=== PATIENT | female | born 1940 | race Caucasian/White ===

== ENCOUNTER 2019-04-30 03:27 | Outpatient (CLI) | payer MEDICARE, SELFPAY ==
--- NOTE | 2019-04-30 09:40 | PFT_ITS ---
PULMONARY FUNCTION TEST REPORT DATE OF SERVICE: April 30, 2019 REQUESTING PROVIDER: Fani Manning M.D. Spirometry shows severe obstructive airways disease with no significant bronchodilator response. Lung volumes show no evidence of restriction. Diffusion capacity severely reduced, which is mildly reduced when corrected to alveolar volume. Airways resistance mildly elevated. IMPRESSION: Severe obstructive airways disease with no significant bronchodilator response. This is associated with severe diffusion defect. Clinical correlation recommended. Hernán
[2019-04-30] MEDS: Albuterol HFA 18 GM 200 PUFF INH IH (11:30)
[2019-04-30] MEDS: Inhaler, Assist Device 1 EACH MC (11:30)
== END 2019-04-30 03:47 ==
PROVIDERS: PCP Family Medicine; Visit Provider Family Medicine
DX: R06.09 Other forms of dyspnea (principal); M06.9 Rheumatoid arthritis, unspecified; Z87.891 Personal history of nicotine dependence
CPT/HCPCS: 94060; 94150; 94726; 94729

== ENCOUNTER 2019-04-30 11:29 | Emergency (ER) | payer MEDICARE, SELFPAY ==
--- NOTE | 2019-04-30 11:35 | NUR.NOTE ---
Nursing Note: Vivian Mcgill had been in [facility] for a pulmonary function test. She wanted to know what her blood pressure was and was told by the tech that they did not do that, so she stopped at the ER and signed in on her way out. After being put in an ER room she decided she did not want to be seen in the ER and would check with her pcp or a BP station at a pharmacy to have it checked.
== END 2019-04-30 11:40 | disposition left before discharge ==
LOC: ER 12:38
PROVIDERS: Emergency Provider Physician Assistant; PCP Family Medicine
DX: Z53.21 Procedure and treatment not carried out due to patient leaving prior to being seen by health care provider (principal)

== ENCOUNTER 2019-05-05 00:50 | Outpatient (CLI) | payer MEDICARE, SELFPAY ==
--- NOTE | 2019-05-05 14:00 | DI.US_ITS ---
APPROVED REPORT EXAM: Comprehensive 2D, Doppler, and color-flow Echocardiogram Patient Location: Out-Patient [facility] Consultant: Marya Stahl [facility] ([place]) Rhythm: NSR Indications: SOb R06.02 RA M06.09 Conclusion Left Ventricle : The left ventricle is top normal size. Left ventricular systolic function is tamara l. There is normal left ventricular wall thickness. There is normal LV segmental wall motion. There i s grade 2 diastolic dysfunction. LVEF is estimated to be 55-60%. Right Ventricle : The right ventricle appears normal in size. The right ventricular systolic function is normal. Atria : The left atrium size is normal. The right atrium size is normal. Aortic Valve : Aortic valve is probably trileaflet. The Aortic valve is sclerotic. Mild to moderate a ortic stenosis (mean gradient 18mmHg). Moderate to severe aortic regurgitation (PHT 273ms). 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 Moderate mitral annular calcification. Calcifications on chordal structures. No evidence of mitral valve stenosis. M oderate mitral regurgitation Tricuspid Valve : The tricuspid valve is normal in structure. Moderate tricuspid regurgitation. Great Vessels : IVC is normal in size and collapses >50% with inspiration. RVSP is 39 to 45 mmHg. There is no prior echocardiogram available for comparison. Wall motion Left Ventricle The left ventricle is top normal size. Left ventricular systolic function is normal. There is normal left ventricular wall thickness. There is normal LV segmental wall motion. There is grade 2 diastolic dysfunction LVEF is estimated to be 55-60%. Right Ventricle The right ventricle appears normal in size. The right ventricular systolic function is normal. Atria The left atrium size is normal. The right atrium size is normal. Aortic Valve Aortic valve is probably trileaflet. The Aortic valve is sclerotic. Mild to moderate aortic stenosis (mean gradient 18mmhg). Moderate to severe aortic regurgitation (PHT 273ms). 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 Moderate mitral annular calcifi cation. Calcifications on chordal structures. No evidence of mitral valve stenosis. Moderate mitral r egurgitation Tricuspid Valve The tricuspid valve is normal in structure. Moderate tricuspid regurgitation. Pulmonic Valve Pulmonic valve is not well visualized. Great Vessels The aortic root is normal in size. The ascending aorta size is dilated (3.3cm). IVC is normal in size and collapses >50% with inspiration. RVSP is 39 to 45 mmHg. Pericardium There is no pericardial effusion. 2D Dimensions IVSd 1.00 cm F: 0.6-1.0 LV EDV A2C 75.20 mL PWd 0.85 cm F: 0.6 - 1.0 LV EDV A4C 95.70 mL LVDd 5.50 cm F: 3.8 - 5.2 LA Volume Index A2C 28.02 mL/m2 LVDs 3.25 cm F: 2.2 - 3.5 LA Volume Index A4C 18.51 mL/m2 Aortic Root 3.00 cm F: 2.7 - 3.3 LA Volume Index Biplane 23.80 mL/m2 RA Area A4C 11.49 cm2 LA Area A4C 13.51 cm2 LVOT 2.05 cm (M/F) 1.5-2.5 LA Area A2C 15.90 cm2 Ascending Aorta 3.37 cm F: 2.3 - 3.1 EF AP4 57.47 % LVEF (Teich) 70.78 % EF AP2 55.98 % LVEF (Garcia's) 58.90 % F: 54 - 74 EF BP 58.90 % LV Volume 74.93 mL F: 46 - 106 LV Volume Index 44.33 mL/m2 F: 29 - 61 FS 40.60 % LV Diastology E/A Ratio 0.7 MED E' 0.06 (>0.07 m/s) LV E/e MED 12.05 (<14) LAT E' 0.05 (>0.1 m/s) LV E/e LAT 16.25 (<14) Pulm Vein s 0.67 m/s PV S/D Ratio 1.39 Pulm Vein d 0.48 m/s Pulm Vein a 0.41 m/s A-A Duration 116.03 msec Aortic Valve LVOT Area 3.31 cm2 LVOT Peak Jareth. 1.25 m/s LVOT Mean Jareth. 0.99 m/s NORM Vmax 0.00 m/s LVOT Peak Gr. 6.55 mmHg NORM Vmax Index 0.92 cm2/m2 LVOT Mean Gr. 4.10 mmHg NORM Mean Jareth. 0.00 m/s LVOT VTI 0.25 m NORM Mean Jareth. Index 0.94 cm2/m2 AoV Peak Jareth. 2.74 (0.5-1.3 m/s) AoV Mean Jareth. 2.04 m/s AI PHT 273.05 msec AO Peak GR. 29.98 mmHg AO Mean GR. 18.30 (<5 mmHg) VTI Ratio 0.43 AV Regurg Decel. 941.54 msec NORM (VTI) 1.43 (2.5-4.5 cm2) NORM (VTI) Index 0.84 cm/m2 Mitral Valve MV E Max Jareth. 0.78 (0.4-1.3 m/s) MV A Velocity 1.10 (0.4-1.3 m/s) E/A Ratio 0.69 MV Peak Gr. 4.17 mmHg MV Mean Gr. 1.14 (<2mmHg) Tricuspid Valve TR P. Velocity 3.13 m/s TV Regurg Vmax 3.13 m/s RVSP 42.16 mmHg TR P. Gradient 39.15 mmHg
== END 2019-05-05 01:10 ==
PROVIDERS: PCP Family Medicine; Visit Provider Student in an Organized Health Care Education/Training Program
DX: R06.02 Shortness of breath (principal); I50.1 Left ventricular failure, unspecified; I08.3 Combined rheumatic disorders of mitral, aortic and tricuspid valves; M06.09 Rheumatoid arthritis without rheumatoid factor, multiple sites
CPT/HCPCS: 93306

== ENCOUNTER 2021-09-22 19:42 | Outpatient (REF) | payer MEDICARE, SELFPAY | END 2021-09-22 19:43 | disposition home or self-care (01) | LOC: NCHCN 19:42 | PROVIDERS: PCP Family Medicine; Visit Provider Family Medicine | DX: R82.79 Other abnormal findings on microbiological examination of urine; Z87.440 Personal history of urinary (tract) infections | CPT/HCPCS: 87077; 87086; 87186 ==

== ENCOUNTER 2023-03-15 12:11 | Outpatient (REF) | payer MEDICARE, SELFPAY ==
[2023-03-15 16:57] LABS: Abs Immature Grans 0.01 10^3/uL (0.0-0.06); Absolute Basophil Count 0.04 10^3/uL (0.0-0.2); Absolute Eosinophil Count 0.25 10^3/uL (0.0-0.7); Absolute Lymphocyte Count 1.95 10^3/uL (1.2-3.4); Absolute Monocyte Count 0.93 10^3/uL (0.1-0.8); Absolute Neutrophil Count 3.72 10^3/uL (1.2-6.7); Basophils % 0.6; Eosinophils % 3.6; HCT 40.1 % (36.0-46.0); Immature Grans % 0.1; Lymphocytes % 28.3; MCH 28.1 pg (27.0-33.0); MCHC 32.4 % (32.0-36.0); MCV 87 fL (80-95); MPV 10.2 fL (8.0-11.0); Monocytes % 13.5; Neutrophils % 53.9; Platelet Count 280 10^3/uL (130-400); RBC 4.62 10^6/uL (3.93-5.22); RDW 14.7 % (11.7-14.6); RDW-SD 47.3 fL
[2023-03-15 17:37] LABS: ALT 24 U/L (14-59); AST 18 U/L (15-37); Albumin 3.4 g/dL (3.4-5.0); Alkaline Phosphatase 98 U/L (46-116); Anion Gap 7.6 mmol/L (3-11); BUN 17 mg/dL (7-18); Bilirubin, Total 0.4 mg/dL (0.2-1.0); C-Reactive Protein 2.45 mg/dL (0.0-0.3); CO2 28.4 mmol/L (21.0-32.0); Calcium 9.4 mg/dL (8.5-10.1); Chloride 97 mmol/L (98-107); Estimated GFR 56.25 (mL/min/1.73m2); Glucose 92 mg/dL (74-106); Potassium 4.4 mmol/L (3.5-5.1); Sodium 133 mmol/L (136-145); Total Protein 7.8 g/dL (6.4-8.2); Uric Acid 5.5 mg/dL (2.6-6.0)
[2023-03-18 12:48] LABS: ESR (LRH) 74 mm/hr
== END 2023-03-15 12:12 | disposition home or self-care (01) ==
LOC: LBN 12:11
PROVIDERS: PCP Family Medicine; Visit Provider Nurse Practitioner
DX: M06.09 Rheumatoid arthritis without rheumatoid factor, multiple sites (principal); Z79.899 Other long term (current) drug therapy
CPT/HCPCS: 80053; 85652; 84550; 85025; 86140

== ENCOUNTER 2024-04-09 12:56 | Outpatient (REF) | payer MEDICARE, SELFPAY ==
[2024-04-09 15:57] LABS: Abs Immature Grans 0.03 10^3/uL (0.0-0.06); Absolute Basophil Count 0.06 10^3/uL (0.0-0.2); Absolute Eosinophil Count 0.26 10^3/uL (0.0-0.7); Absolute Lymphocyte Count 1.59 10^3/uL (1.2-3.4); Absolute Monocyte Count 0.94 10^3/uL (0.1-0.8); Absolute Neutrophil Count 6.42 10^3/uL (1.2-6.7); Basophils % 0.6 %; Eosinophils % 2.8 %; HGB 14.1 g/dL (11.2-15.7); Immature Grans % 0.3 %; Lymphocytes % 17.1 %; MCH 28.8 pg (27.0-33.0); MCHC 32.8 % (32.0-36.0); MCV 88 fL (80-95); Monocytes % 10.1 %; Neutrophils % 69.1 %; Platelet Count 264 10^3/uL (130-400); RBC 4.89 10^6/uL (3.93-5.22); RDW 14.3 % (11.7-14.6); RDW-SD 45.9 fL
[2024-04-09 16:07] LABS: ESR 46 mm/hr (0-30)
[2024-04-09 16:21] LABS: ALT 16 U/L (14-59); AST 24 U/L (15-37); Albumin 3.2 g/dL (3.4-5.0); Alkaline Phosphatase 110 U/L (46-116); Anion Gap 7.7 mmol/L (3-11); BUN 23 mg/dL (7-18); Bilirubin, Total 0.41 mg/dL (0.2-1.0); C-Reactive Protein 2.04 mg/dL (<or=0.5); CO2 29.3 mmol/L (21.0-32.0); CREATININE 1.1 mg/dL (0.55-1.02); Calcium 9.1 mg/dL (8.5-10.1); Chloride 102 mmol/L (98-107); Estimated GFR 49.86 (mL/min/1.73m2); Glucose 98 mg/dL (74-106); Potassium 4.5 mmol/L (3.5-5.1); Sodium 139 mmol/L (136-145); Total Protein 8.2 g/dL (6.4-8.2)
== END 2024-04-09 12:57 | disposition home or self-care (01) ==
LOC: LBN 12:56
PROVIDERS: PCP Family Medicine; Visit Provider Nurse Practitioner
DX: M06.09 Rheumatoid arthritis without rheumatoid factor, multiple sites (principal); Z79.899 Other long term (current) drug therapy
CPT/HCPCS: 80053; 85652; 85025; 86140

== ENCOUNTER 2024-04-30 11:01 | Outpatient (REF) | payer MEDICARE, MEDICAID, SELFPAY | END 2024-04-30 11:02 | disposition home or self-care (01) | LOC: NCHCN 11:01 | PROVIDERS: PCP Family Medicine; Visit Provider Family Medicine | DX: N39.0 Urinary tract infection, site not specified (principal); B96.29 Other Escherichia coli [E. coli] as the cause of diseases classified elsewhere; R82.89 Other abnormal findings on cytological and histological examination of urine | CPT/HCPCS: 87077; 87086; 87186 ==

== ENCOUNTER 2024-06-12 20:31 | Outpatient (REF) | payer MEDICARE, MEDICAID, SELFPAY ==
[2024-06-12 16:34] LABS: Bilirubin Negative (Negative); Blood Small (Negative); Clarity Cloudy (Clear); Glucose Negative (Negative); Ketones Trace mg/dL (Negative); Leukocyte Esterase Moderate (Negative); Nitrite Negative (Negative); Specific Gravity 1.015 (1.005-1.025); Urobilinogen 0.2 mg/dL (Up to 0.2)
[2024-06-12 16:44] LABS: C & S Indicated? Yes; WBC >50 HPF (0-5)
== END 2024-06-12 20:32 | disposition home or self-care (01) ==
LOC: NCHCN 20:31
PROVIDERS: PCP Family Medicine; Visit Provider Family Medicine
DX: N39.0 Urinary tract infection, site not specified (principal); B96.29 Other Escherichia coli [E. coli] as the cause of diseases classified elsewhere; R82.89 Other abnormal findings on cytological and histological examination of urine
CPT/HCPCS: 87077; 81003; 81015; 87086; 87186